=== PATIENT | female | born 1995 | race Caucasian/White ===

== ENCOUNTER → 2020-08-26 09:31 | Outpatient (BNVA) | payer OTHER, SELFPAY | DX: Z34.80 Encounter for supervision of other normal pregnancy, unspecified trimester (principal) | CPT/HCPCS: 99211 ==

== ENCOUNTER 2020-09-01 19:21 | Emergency (ER) | payer OTHER, SELFPAY ==
[2020-09-01 19:28] VITALS: BP 117/76; PULSE 69; RESP 18; TEMP 36.8; O2SAT 99; BMI 29.0
[2020-09-01 20:00] VITALS: BP 113/74; PULSE 67; RESP 16; TEMP 37.3; O2SAT 100
--- NOTE | 2020-09-01 20:19 | US_ITS ---
EXAMINATION: ULTRASOUND CLINICAL INFORMATION: Vaginal spotting with COMPARISON: None TECHNIQUE: Both transabdominal and endovaginal scanning was performed. FINDINGS: An anteverted uterus is present. A small gestational sac is seen in the endometrial cavity. A tiny yolk sac is seen. No pole is present. Gestational sac measures 0.58 cm which corresponds with a gestational age of 5 weeks 1 day The right ovary measures 2.4 x 2.3 x 1.5 cm and appears unremarkable. Left ovary measures 3.0 x 1.0 x 1.5 cm and appears unremarkable. No free fluid is present in the cul-de-sac US/US OB transvaginal IMPRESSION: A gestational sac is seen along with a yolk sac but no pole is identified. Based upon gestational sac size, age would be 5 weeks 1 day. Please correlate with hCG and repeat ultrasound if needed.
--- NOTE | 2020-09-01 20:21 | US_ITS ---
EXAMINATION: ULTRASOUND CLINICAL INFORMATION: Vaginal spotting with COMPARISON: None TECHNIQUE: Both transabdominal and endovaginal scanning was performed. FINDINGS: An anteverted uterus is present. A small gestational sac is seen in the endometrial cavity. A tiny yolk sac is seen. No pole is present. Gestational sac measures 0.58 cm which corresponds with a gestational age of 5 weeks 1 day The right ovary measures 2.4 x 2.3 x 1.5 cm and appears unremarkable. Left ovary measures 3.0 x 1.0 x 1.5 cm and appears unremarkable. No free fluid is present in the cul-de-sac US/US OB <= 14 weeks fetus IMPRESSION: A gestational sac is seen along with a yolk sac but no pole is identified. Based upon gestational sac size, age would be 5 weeks 1 day. Please correlate with hCG and repeat ultrasound if needed.
[2020-09-01 20:45] LABS: MANUAL DIFF FLAG NO
[2020-09-01 20:48] LABS: Glucose Urine UA NEG (NEG); Leukocyte Esterase Urine NEG (NEG); Nitrite Urine NEG (NEG); PH 6.5 (5.0-8.0); UPreg QC Valid YES; Urine Blood TRACE (NEG); Urine Ketones NEG (NEG); Urine Pregnancy POSITIVE (NEGATIVE); Urine Protein NEG (NEG-TRACE)
[2020-09-01 20:49] LABS: Appearance Urine HAZY; Color Urine YELLOW
[2020-09-01 20:50] LABS: Basophils Percent Auto 0.5 % (0-2); Eosinophils Absolute Auto 0.6 X10*3/uL (0.0-0.4); Hematocrit 37.4 % (37-47); Hemoglobin 12.4 g/dl (12.0-16.0); Imm Gran Abs Auto 0.02 X10*3/uL (0.00-0.03); Imm Gran Pct Auto 0.2 % (0.0-0.4); Lymphocytes Absolute Auto 3.8 X10*3/uL (1.2-4.9); Lymphocytes Percent Auto 43.1 % (20-40); Mean Corpuscular HGB Conc 33.2 g/dl (31.0-35.0); Mean Corpuscular Volume 90.3 fL (80-98); Mean Platelet Volume 9.4 fL (9.4-12.3); Monocytes Absolute Auto 0.7 X10*3/uL (0.1-1.2); Monocytes Percent Auto 7.4 % (2-11); Neutrophils Absolute Auto 3.7 X10*3/uL (2.0-8.3); Neutrophils Percent Auto 41.8 % (45-73); Platelet Count 311 X10*3/uL (160-400); Red Blood Count 4.14 X10*6/uL (4.20-5.50); Red Cell Distribution Width 12.1 % (11.0-16.0); White Blood Count 8.8 X10*3/uL (4.8-10.8)
[2020-09-01 20:57] LABS: INTERNATIONAL NORM RATIO 1.2 (0.9-1.1); Prothrombin Time 14.5 SEC (10.8-13.0)
[2020-09-01 20:59] LABS: Partial Thromboplastin Time 36.9 SEC (24.1-38.0)
[2020-09-01 21:08] LABS: Amorphous Sediment Urine 1+ /LPF; Bacteria Urine 2+ /LPF; RBC Urine 0-2 /HPF (0); Squamous Epithelial Cell Urine 2+ /LPF; WBC Urine 0 /HPF (0-4)
[2020-09-01 21:21] LABS: Alanine Aminotransferase 11 U/L (0-31); Albumin Level 4.4 g/dL (3.5-5.0); Alkaline Phosphatase 38 U/L (39-117); Anion Gap 9 (12-20); Aspartate Amino Transferase 14 U/L (5-31); Bilirubin Direct < 0.2 mg/dL (0.0-0.5); Bilirubin Total 0.4 mg/dL (0.0-1.0); Blood Urea Nitrogen 17 mg/dL (9-16); Calcium 8.8 mg/dL (8.4-10.2); Carbon Dioxide 27 mmol/L (22-29); Chloride 103 mmol/L (96-108); Creatinine Clr Calc Pharmacy 122.2; Estimated Glomerular Filt Rate > 60; Glucose Random 85 mg/dL (60-115); HCG Quantitative 1065 mIU/mL; Lipase 28 U/L (8-78); Potassium 4.3 mmol/l (3.3-5.1); Sodium 135 mmol/L (135-145); Total Protein 7.1 g/dL (6.5-8.0)
[2020-09-01 21:48] VITALS: BP 105/71; PULSE 59; RESP 16; TEMP 36.8; O2SAT 100
--- NOTE | 2020-09-01 22:06 | ED.FEMALEGU ---
HPI - Female Genitourinary General Chief complaint: OB Stated complaint: ultrasound Time Seen by Provider: 09/01/20 23:20 Source: patient Mode of arrival: ambulatory Limitations: no limitations History of Present Illness HPI Narrative: Patient presents to the ED for vaginal spotting since yesterday. Patient states mild abdominal cramping that resolved. Patient was referred to the ED by her OBGYN for further evaluation. Patient denies any blood clots or heavy bleeding. Patient states this is 2nd . Related Data Allergies Allergy/AdvReac Type Severity Reaction Status Date / Time No Known Allergies Allergy Unverified 07/11/20 19:29 [No Known Allergies*] Review of Systems Review of Systems: Yes all other systems are reviewed and are negative Constitutional: Constitutional: Reports as per HPI and Reports no additional constitutional complaints Eyes: Eyes: Reports as per HPI and Reports no additional eye complaints ENT: Reports system reviewed and no additional complaints, except as documented and Reports as per HPI Cardiovascular: Cardiovascular: Reports as per HPI and Reports no additional cardiovascular complaints Respiratory: Respiratory: Reports as per HPI and Reports no additional respiratory complaints Gastrointestinal: Gastrointestinal: Reports GI cramping ( Resolved) Genitourinary: Genitourinary: Reports abnormal vaginal bleeding ( vaginal spotting) Musculoskeletal: Musculoskeletal: Reports no additional musculoskeletal complaints Neurologic: Reports system reviewed and no additional complaints, except as documented and Reports as per HPI Psychiatric: Psychiatric: Reports no additional psychiatric complaints and Reports as per HPI PMF Social History Social History Alcohol intake: never Smoking Status: Never smoker Smoked in Last 30 Days: No Use of substances other than those prescribed or required for medical reasons: No Advance Directives: No Advance Directives Information Provided: Yes Physical Exam Vital Signs: Vital Signs: Last Vital Signs Temp 98.6 F 09/01/20 23:03 Pulse 62 09/01/20 23:03 Resp 16 09/01/20 23:03 BP 116/69 09/01/20 23:03 Pulse Ox 100 09/01/20 23:03 Body Mass Index 29.0 Const: General: cooperative, healthy appearing, comfortable, no acute distress, well developed and alert Orientation/consciousness: oriented to person, oriented to place, oriented to time and patient oriented x3 HENMT: Head: Yes normal to inspection and Yes No palpable skull fracture present Eyes: General: appearance normal, both eyes and all related structures Visual Rich: normal visual rich by confrontation Neck: Neck: Yes normal visual inspection and Yes full ROM Chest: Chest palpation & inspection: normal inspection of the chest and normal palpation of entire chest wall Resp: Effort & Inspection: normal respiratory effort and able to speak in complete sentences Auscultation: clear to auscultation bilaterally Cardio: Jugular venous distension: no JVD Heart sounds: S1 normal heart sound present and S2 normal heart sound present GI: Inspection: Yes normal to inspection and No abdominal wall ecchymosis Palpation (GI): Soft to palpation, not firm, nontender, no guarding and not rigid : Other: Cervical os is closed. Positive for residue blood vaginal vault. Negative for any heavy bleeding, blood clots, hemorrhaging. General: No CVA tenderness and Yes no CVA tenderness Back/Spine/Pelvis: Back: no CVA tenderness, No CVA tenderness and No back tenderness Skin: General skin exam: no rashes or lesions noted Neuro: General: oriented to person, oriented to place, oriented to time, patient oriented x3 and CN's II-XI intact bilaterally Cranial nerves: Yes CN's II-XII intact bilaterally Extrem: General: Yes normal to inspection and Yes full ROM Psych: Appearance: grossly normal and well kempt Course Course Course Narrative: Patient had basic labs including urine, Rh type, and ultrasound to rule out topic . Patient present not any pain Reevaluation(s) Reevaluation #1: patient labs are baseline. Urine negative for UTI. Ultrasound shows gestational sac at 5 weeks. Patient is Rh type negative. [facility] see patient is should have her RhoGAM due to her being Rh negative in Time: 21:20 Reevaluation #2: spoke with Dr. Romo of OBGYN who states patient does not need RhoGAM presently in the ED. She states patient could be discharged and will receive RhoGAM injection at 28 weeks. Patient will call tomorrow for follow-up Time: 23:45 MDM - Female Genitourinary MDM Narrative Medical decision making narrative: early versus threatened Lab Data Result diagrams: 09/01/20 20:37 09/01/20 20:37 Labs: Lab Results 09/01/20 09/01/20 09/01/20 Range/Units 20:37 20:37 20:37 WBC 8.8 (4.8-10.8) X10*3/uL RBC 4.14 L (4.20-5.50) X10*6/uL Hgb 12.4 (12.0-16.0) g/dl Hct 37.4 (37-47) % MCV 90.3 (80-98) fL MCH 30.0 (27.0-33.0) pg MCHC 33.2 (31.0-35.0) g/dl RDW 12.1 (11.0-16.0) % Plt Count 311 (160-400) X10*3/uL MPV 9.4 (9.4-12.3) fL Immature Gran % (Auto) 0.2 (0.0-0.4) % Neut % (Auto) 41.8 L (45-73) % Lymph % (Auto) 43.1 H (20-40) % [place] % (Auto) 7.4 (2-11) % Eos % (Auto) 7.0 H (0-4) % Baso % (Auto) 0.5 (0-2) % Lymph # (Auto) 3.8 (1.2-4.9) X10*3/uL [place] # (Auto) 0.7 (0.1-1.2) X10*3/uL Eos # (Auto) 0.6 H (0.0-0.4) X10*3/uL Baso # (Auto) 0.0 (0.0-0.2) X10*3/uL Abs Immat Gran (auto) 0.02 (0.00-0.03) X10*3/uL Absolute Neuts (auto) 3.7 (2.0-8.3) X10*3/uL Absolute Nucleated RBC 0.000 (0.0-0.012) X10*3/uL Nucleated RBC % (auto) 0.0 (0.0-0.2) /100WBC PT 14.5 H (10.8-13.0) SEC INR 1.2 H (0.9-1.1) APTT 36.9 (24.1-38.0) SEC Sodium 135 (135-145) mmol/L Potassium 4.3 (3.3-5.1) mmol/l Chloride 103 (96-108) mmol/L Carbon Dioxide 27 (22-29) mmol/L Anion Gap 9 L (12-20) BUN 17 H (9-16) mg/dL Creatinine 0.79 (0.5-1.4) mg/dL Estim Creat Clear Calc 122.2 Estimated GFR > 60 Random Glucose 85 (60-115) mg/dL Calcium 8.8 (8.4-10.2) mg/dL Total Bilirubin 0.4 (0.0-1.0) mg/dL Direct Bilirubin < 0.2 (0.0-0.5) mg/dL AST 14 (5-31) U/L ALT 11 (0-31) U/L Alkaline Phosphatase 38 L (39-117) U/L Total Protein 7.1 (6.5-8.0) g/dL Albumin 4.4 (3.5-5.0) g/dL Lipase 28 (8-78) U/L Beta HCG, Quant 1065 mIU/mL Urine Color Urine Appearance Urine pH (5.0-8.0) Ur Specific [place] (1.005-1.025) Urine Protein (NEG-TRACE) MG/DL Urine Glucose (UA) (NEG) MG/DL Urine Ketones (NEG) MG/DL Urine Blood (NEG) Urine Nitrite (NEG) Ur Leukocyte Esterase (NEG) Urine RBC (0) /HPF Urine WBC (0-4) /HPF Ur Squamous Epith Cells /LPF Amorphous Sediment /LPF Urine Bacteria /LPF Urine Test (NEGATIVE) Blood Type 09/01/20 09/01/20 Range/Units 20:37 20:42 WBC (4.8-10.8) X10*3/uL RBC (4.20-5.50) X10*6/uL Hgb (12.0-16.0) g/dl Hct (37-47) % MCV (80-98) fL MCH (27.0-33.0) pg MCHC (31.0-35.0) g/dl RDW (11.0-16.0) % Plt Count (160-400) X10*3/uL MPV (9.4-12.3) fL Immature Gran % (Auto) (0.0-0.4) % Neut % (Auto) (45-73) % Lymph % (Auto) (20-40) % [place] % (Auto) (2-11) % Eos % (Auto) (0-4) % Baso % (Auto) (0-2) % Lymph # (Auto) (1.2-4.9) X10*3/uL [place] # (Auto) (0.1-1.2) X10*3/uL Eos # (Auto) (0.0-0.4) X10*3/uL Baso # (Auto) (0.0-0.2) X10*3/uL Abs Immat Gran (auto) (0.00-0.03) X10*3/uL Absolute Neuts (auto) (2.0-8.3) X10*3/uL Absolute Nucleated RBC (0.0-0.012) X10*3/uL Nucleated RBC % (auto) (0.0-0.2) /100WBC PT (10.8-13.0) SEC INR (0.9-1.1) APTT (24.1-38.0) SEC Sodium (135-145) mmol/L Potassium (3.3-5.1) mmol/l Chloride (96-108) mmol/L Carbon Dioxide (22-29) mmol/L Anion Gap (12-20) BUN (9-16) mg/dL Creatinine (0.5-1.4) mg/dL Estim Creat Clear Calc Estimated GFR Random Glucose (60-115) mg/dL Calcium (8.4-10.2) mg/dL Total Bilirubin (0.0-1.0) mg/dL Direct Bilirubin (0.0-0.5) mg/dL AST (5-31) U/L ALT (0-31) U/L Alkaline Phosphatase (39-117) U/L Total Protein (6.5-8.0) g/dL Albumin (3.5-5.0) g/dL Lipase (8-78) U/L Beta HCG, Quant mIU/mL Urine Color YELLOW Urine Appearance HAZY Urine pH 6.5 (5.0-8.0) Ur Specific [place] 1.020 (1.005-1.025) Urine Protein NEG (NEG-TRACE) MG/DL Urine Glucose (UA) NEG (NEG) MG/DL Urine Ketones NEG (NEG) MG/DL Urine Blood TRACE (NEG) Urine Nitrite NEG (NEG) Ur Leukocyte Esterase NEG (NEG) Urine RBC 0-2 (0) /HPF Urine WBC 0 (0-4) /HPF Ur Squamous Epith Cells 2+ /LPF Amorphous Sediment 1+ /LPF Urine Bacteria 2+ /LPF Urine Test POSITIVE H (NEGATIVE) Blood Type O Negative Discharge Plan Discharge Clinical Impression: Early stage of Patient Disposition: Home, Self-Care Instructions: Threatened Miscarriage (ED), (ED) Additional Instructions: return to the ED for any abdominal pain, vaginal bleeding, bleeding clots, weakness, flank pain, fever, chills, nausea, vomiting, or any other concerning symptoms. Referrals: Wendy Romo MD [Physician] - 2 days ( in the ED for resolved abdominal cramping with vaginal spotting. Early versus threatened . Needs repeat ultrasound and repeat beta hCG.) Interventions: ED Discharge Assessment Last Done: 09/02/20 00:01 Discharge Date/Time: 09/02/20 00:02 Print Language: [place]
[2020-09-01 23:03] VITALS: BP 116/69; PULSE 62; RESP 16; TEMP 37; O2SAT 100
--- NOTE | 2020-09-01 23:04 | PC.NURSE ---
THIS PCT SET UP AND ASSIST PA PAKO WITH PATIENT PELVIC EXAM
== END 2020-09-02 00:02 | disposition home or self-care (01) ==
PROVIDERS: Physician Assistant; Emergency Provider Emergency Medicine; PCP Pediatrics
DX: O20.0 Threatened abortion (principal)
CPT/HCPCS: 36415; 76801; 76817; 80053; 80076; 81001; 81025; 82248; 83690; 84702; 85025; 85610; 85730; 86900; 86901; 99284

== ENCOUNTER 2020-09-02 13:24 | Emergency (ER) | payer OTHER, SELFPAY ==
[2020-09-02 15:03] VITALS: BP 133/72; PULSE 77; RESP 16; TEMP 36.9; O2SAT 99; BMI 29.0
--- NOTE | 2020-09-02 15:19 | ED_ITS ---
HPI - General Chief complaint: Vaginal Bleeding Stated complaint: VAGINAL BLEEDING Time Seen by Provider: 09/02/20 15:12 Source: patient Mode of arrival: ambulatory Limitations: no limitations History of Present Illness HPI Narrative: 25-year-old female previously healthy here with vaginal bleedi ng, lower abdominal cramping and low back pain with headache since waking. Changed pad 3 times today. Followed by Dr Majano. Patient tells me that yesterday she had some scant vaginal bleeding noted only with wiping and was seen in the emergency department. She had an ultrasound which showed A gestational sac is seen along with a yolk sac but no pole is identified. Based upon gestational sac size, age would be 5 weeks 1 day. quant 1065. sent home with diagnosis of early versus threatened miscarriage. Patient tells me this morning when she woke up she felt worse and had additional symptoms. She tells me she has changed her pad twice since waking this morning. She called her OB and she was referred to the emergency department for further evaluation. She is . MD Complaint: abdominal pain and vaginal bleeding Onset (ago): hour(s) Pain Consistency: constant Location: abdomen Severity: mild Quality: Cramping Radiation: pelvis Relieving factors: none Exacerbating factors: none Associated symptoms: vaginal bleeding Vaginal discharge: none Vaginal bleeding: light Patient : Yes OB History - Previous Pregnancies: no complications care: followed by OB (Demetrius) Related Data Allergies Allergy/AdvReac Type Severity Reaction Status Date / Time No Known Allergies Allergy Unverified 07/11/20 19:29 [No Known Allergies*] Review of Systems Review of Systems: Yes all other systems are reviewed and are negative Constitutional: Constitutional: Reports no additional constitutional complaints, Denies body ache(s), Denies chills, Denies fever(s), Reports headache(s) and Denies weakness Eyes: Eyes: Reports no additional eye complaints and Denies change in vision ENT: Reports system reviewed and no additional complaints, except as documented, Denies dizziness, Reports headache(s), Denies nasal congestion, Denies nasal discharge and Denies neck pain Cardiovascular: Cardiovascular: Reports no additional cardiovascular complaints, Denies chest pain, Denies leg edema and Denies dyspnea Respiratory: Respiratory: Reports no additional respiratory complaints, Denies cough and Denies dyspnea Gastrointestinal: Gastrointestinal: Reports no additional gastrointestinal complaints, Reports abdominal pain, Denies diarrhea, Denies nausea and Denies vomiting Genitourinary: Genitourinary: Reports no additional female genitourinary complaints, Reports abnormal vaginal bleeding and Denies urinary incontinence Musculoskeletal: Musculoskeletal: Reports no additional musculoskeletal complaints, Reports back pain, Denies arthralgias, Denies joint swelling, Denies neck pain, Denies numbness and Denies tingling Integumentary/Breasts: Skin/Breast: Reports system reviewed and no additional complaints, except as docu and Denies rash Neurologic: Reports system reviewed and no additional complaints, except as documented, Denies Abnormal speech present, Denies dizziness, Reports headache(s), Denies numbness, Denies tingling and Denies weakness PMFSH Past Medical History Attestation statement: The following information was validated with the patient. Source: obtained from family and nursing notes reviewed Social History Social History Alcohol intake: never Smoking Status: Never smoker Advance Directives: No Advance Directives Information Provided: Yes Physical Exam Vital Signs: Vital Signs: Last Vital Signs Temp 98.5 F 09/02/20 15:03 Pulse 77 09/02/20 15:03 Resp 16 09/02/20 15:03 BP 133/72 09/02/20 15:03 Pulse Ox 99 09/02/20 15:03 Body Mass Index 29.0 Const: General: cooperative, healthy appearing, comfortable and no acute distress Orientation/consciousness: patient oriented x3 Limitations: no limitations HENMT: Head: Yes normal to inspection Ears: hearing grossly normal bilaterally General nose exam: Normal external nose present Face and sinus: Yes normal facial exam Mouth: Normal oral and palatal mucosa present Throat: Yes posterior oropharynx normal Eyes: General: appearance normal, both eyes and all related structures Pupils: Equal, round and reactive pupils present Neck: Neck: Yes normal visual inspection Chest: Chest palpation & inspection: normal inspection of the chest Resp: Effort & Inspection: normal respiratory effort Auscultation: clear to auscultation bilaterally Cardio: Rate: regular rate Rhythm: regular rhythm Peripheral pulses: Peripheral pulses 2+ throughout GI: Inspection: Yes normal to inspection Palpation (GI): Soft to palpation and Tenderness to palpation present (GI) ( Mild bilateral lower tenderness on exam.) Auscultation: normal bowel sounds : Other: moderate vaginal bleeding noted from the cervical os, small clots. Back/Spine/Pelvis: Thoracic/Lumbar Spine: thoracic and lumbar spine normal to inspection Skin: General skin exam: no rashes or lesions noted Neuro: General: patient oriented x3, no focal motor deficits and normal sensat ion to monofilament Cranial nerves: Yes Equal, round and reactive pupils present Cognition (Neuro): normal cognition Speech: No Abnormal speech present Gait exam (Neuro): Normal gait present Motor exam (neuro): 5/5 mo tor strength present throughout Extrem: General: Yes normal to inspection Course Course Course Narrative: Patient here with abdominal cramping, low back pain, vaginal bleeding increasing last 12 hrs, recent ED visit last evening for threatened miscarriage vs early . Will repeat labs, beta quant, UA, pelvic exam, d/w wih OB. 1645- Unfortunately the patient's beta quant is decreasing since yesterday. On her vaginal exam she has moderate bleeding from the cervical os. Will check ultrasound. Concern for miscarriage. 1700-Sign out to Shawn SALAS pending above, MDM - OB/Uterine Contractions Medical Records Attestation: I reviewed the patient's medical records. Lab Data Attestation: I reviewed the patient's lab results. Result diagrams: 09/02/20 15:50 09/02/20 15:50 Labs: Lab Results 09/02/20 09/02/20 09/02/20 Range/Units 15:50 15:50 15:56 WBC 11.4 H (4.8-10.8) X10*3/uL RBC 4.51 (4.20-5.50) X10*6/uL Hgb 13.5 (12.0-16.0) g/dl Hct 40.3 (37-47) % MCV 89.4 (80-98) fL MCH 29.9 (27.0-33.0) pg MCHC 33.5 (31.0-35.0) g/dl RDW 12.2 (11.0-16.0) % Plt Count 312 (160-400) X10*3/uL MPV 9.3 L (9.4-12.3) fL Immature Gran % (Auto) 0.4 (0.0-0.4) % Neut % (Auto) 76.5 H (45-73) % Lymph % (Auto) 15.6 L (20-40) % [place] % (Auto) 5.1 (2-11) % Eos % (Auto) 2.1 (0-4) % Baso % (Auto) 0.3 (0-2) % Lymph # (Auto) 1.8 (1.2-4.9) X10*3/uL [place] # (Auto) 0.6 (0.1-1.2) X10*3/uL Eos # (Auto) 0.2 (0.0-0.4) X10*3/uL Baso # (Auto) 0.0 (0.0-0.2) X10*3/uL Abs Immat Gran (auto) 0.04 H (0.00-0.03) X10*3/uL Absolute Neuts (auto) 8.7 H (2.0-8.3) X10*3/uL Absolute Nucleated RBC 0.000 (0.0-0.012) X10*3/uL Nucleated RBC % (auto) 0.0 (0.0-0.2) /100WBC Sodium 137 (135-145) mmol/L Potassium 4.2 (3.3-5.1) mmol/l Chloride 105 (96-108) mmol/L Carbon Dioxide 23 (22-29) mmol/L Anion Gap 13 (12-20) BUN 11 (9-16) mg/dL Creatinine 0.74 (0.5-1.4) mg/dL Estim Creat Clear Calc 130.5 Estimated GFR > 60 Random Glucose 105 (60-115) mg/dL Calcium 9.3 (8.4-10.2) mg/dL Total Bilirubin 0.7 (0.0-1.0) mg/dL Direct Bilirubin 0.2 (0.0-0.5) mg/dL AST 16 (5-31) U/L ALT 12 (0-31) U/L Alkaline Phosphatase 41 (39-117) U/L Total Protein 8.0 (6.5-8.0) g/dL Albumin 4.8 (3.5-5.0) g/dL Beta HCG, Quant 982 mIU/mL Urine Color YELLOW Urine Appearance CLEAR Urine pH 7.5 (5.0-8.0) Ur Specific [place] 1.015 (1.005-1.025) Urine Protein NEG (NEG-TRACE) MG/DL Urine Glucose (UA) NEG (NEG) MG/DL Urine Ketones NEG (NEG) MG/DL Urine Blood 3+ H (NEG) Urine Nitrite NEG (NEG) Ur Leukocyte Esterase NEG (NEG) Urine RBC 15-29 H (0) /HPF Urine WBC 0-2 (0-4) /HPF Ur Squamous Epith Cells 2+ /LPF Urine Bacteria NONE /LPF
[2020-09-02] MEDS: 0.9 % Sodium Chloride 1,000 ML 999 ML IV (15:57)
[2020-09-02] MEDS: Acetaminophen 325 MG TABLET 975 MG PO (15:57)
[2020-09-02 15:59] LABS: MANUAL DIFF FLAG NO
[2020-09-02 16:00] LABS: Basophils Percent Auto 0.3 % (0-2); Eosinophils Absolute Auto 0.2 X10*3/uL (0.0-0.4); Eosinophils Percent Auto 2.1 % (0-4); Hematocrit 40.3 % (37-47); Hemoglobin 13.5 g/dl (12.0-16.0); Imm Gran Abs Auto 0.04 X10*3/uL (0.00-0.03); Imm Gran Pct Auto 0.4 % (0.0-0.4); Lymphocytes Absolute Auto 1.8 X10*3/uL (1.2-4.9); Lymphocytes Percent Auto 15.6 % (20-40); Mean Corpuscular HGB Conc 33.5 g/dl (31.0-35.0); Mean Corpuscular Hemoglobin 29.9 pg (27.0-33.0); Mean Corpuscular Volume 89.4 fL (80-98); Mean Platelet Volume 9.3 fL (9.4-12.3); Monocytes Absolute Auto 0.6 X10*3/uL (0.1-1.2); Monocytes Percent Auto 5.1 % (2-11); Neutrophils Absolute Auto 8.7 X10*3/uL (2.0-8.3); Neutrophils Percent Auto 76.5 % (45-73); Platelet Count 312 X10*3/uL (160-400); Red Blood Count 4.51 X10*6/uL (4.20-5.50); Red Cell Distribution Width 12.2 % (11.0-16.0); White Blood Count 11.4 X10*3/uL (4.8-10.8)
[2020-09-02 16:17] LABS: Appearance Urine CLEAR; Color Urine YELLOW; Glucose Urine UA NEG (NEG); Leukocyte Esterase Urine NEG (NEG); Nitrite Urine NEG (NEG); PH 7.5 (5.0-8.0); Specific Gravity - Urine 1.015 (1.005-1.025); Urine Blood 3+ (NEG); Urine Ketones NEG (NEG); Urine Protein NEG (NEG-TRACE)
[2020-09-02 16:25] LABS: Squamous Epithelial Cell Urine 2+ /LPF; WBC Urine 0-2 /HPF (0-4)
[2020-09-02 16:29] LABS: Alanine Aminotransferase 12 U/L (0-31); Albumin Level 4.8 g/dL (3.5-5.0); Alkaline Phosphatase 41 U/L (39-117); Anion Gap 13 (12-20); Aspartate Amino Transferase 16 U/L (5-31); Bilirubin Direct 0.2 mg/dL (0.0-0.5); Bilirubin Total 0.7 mg/dL (0.0-1.0); Blood Urea Nitrogen 11 mg/dL (9-16); Calcium 9.3 mg/dL (8.4-10.2); Carbon Dioxide 23 mmol/L (22-29); Chloride 105 mmol/L (96-108); Creatinine Clr Calc Pharmacy 130.5; Estimated Glomerular Filt Rate > 60; Glucose Random 105 mg/dL (60-115); Potassium 4.2 mmol/l (3.3-5.1); Sodium 137 mmol/L (135-145)
[2020-09-02 16:31] LABS: HCG Quantitative 982 mIU/mL
--- NOTE | 2020-09-02 16:38 | US_ITS ---
EXAMINATION: ULTRASOUND CLINICAL INFORMATION: Pain and bleeding COMPARISON: 09/01/2020 TECHNIQUE: Transabdominal endovaginal scanning was performed. FINDINGS: The uterus measures 9.3 x 4.3 x 4.4 cm. A gestational sac is seen in the lower uterine segment which appears more flattened than it did yesterday. No contents are seen with certainty. No pole or heartbeat is seen. I suspect that this represents a miscarriage. Please correlate with hCG levels. Based upon the size of the gestational sac, age would be 5 weeks and 4 days which is slightly increased since yesterday. The right ovary measures 2.8 x 1.6 x 2.2 cm and contains a 1.1 x 1.0 x 1.0 cm corpus luteum cyst. The left ovary measures 2.2 x 1.2 x 1.0 cm and appears normal. No free fluid is present. US/US OB <= 14 weeks fetus IMPRESSION: A gestational sac is present which appears more flattened than it did yesterday and is now in the lower uterine segment. No pole or yolk sac is identified.
--- NOTE | 2020-09-02 17:02 | US_ITS ---
EXAMINATION: ULTRASOUND CLINICAL INFORMATION: Pain and bleeding COMPARISON: 09/01/2020 TECHNIQUE: Transabdominal endovaginal scanning was performed. FINDINGS: The uterus measures 9.3 x 4.3 x 4.4 cm. A gestational sac is seen in the lower uterine segment which appears more flattened than it did yesterday. No contents are seen with certainty. No pole or heartbeat is seen. I suspect that this represents a miscarriage. Please correlate with hCG levels. Based upon the size of the gestational sac, age would be 5 weeks and 4 days which is slightly increased since yesterday. The right ovary measures 2.8 x 1.6 x 2.2 cm and contains a 1.1 x 1.0 x 1.0 cm corpus luteum cyst. The left ovary measures 2.2 x 1.2 x 1.0 cm and appears normal. No free fluid is present. US/US OB transvaginal IMPRESSION: A gestational sac is present which appears more flattened than it did yesterday and is now in the lower uterine segment. No pole or yolk sac is identified.
[2020-09-02] MEDS: Rho(D) Immune Globulin 300 MCG SYRINGE IM (19:44)
== END 2020-09-02 20:09 | disposition home or self-care (01) ==
PROVIDERS: Nurse Practitioner Family; Emergency Provider Emergency Medicine; PCP Pediatrics
DX: O26.91 Pregnancy related conditions, unspecified, first trimester (principal); Z3A.01 Less than 8 weeks gestation of pregnancy
CPT/HCPCS: 36415; 76801; 76817; 80048; 80076; 81001; 84702; 85025; 86850; 86886; 86900; 86901; 96360; 99283; 99284; J2790

== ENCOUNTER 2020-10-01 07:51 | Outpatient (REF) | payer OTHER, SELFPAY | END 2020-10-01 07:52 | disposition home or self-care (01) | LOC: HO.LAB 07:51 | PROVIDERS: PCP Pediatrics; Visit Provider Advanced Practice Midwife | DX: Z13.89 Encounter for screening for other disorder (principal) ==

== ENCOUNTER 2020-10-02 10:21 | Outpatient (REF) | payer OTHER, SELFPAY ==
[2020-10-02 11:35] LABS: HCG Quantitative 32 mIU/mL
== END 2020-10-02 10:22 | disposition home or self-care (01) ==
LOC: HO.LAB 10:21
PROVIDERS: PCP Pediatrics; Visit Provider Advanced Practice Midwife
DX: O03.9 Complete or unspecified spontaneous abortion without complication (principal); Z3A.00 Weeks of gestation of pregnancy not specified
CPT/HCPCS: 84702; 99212

== ENCOUNTER 2020-10-09 15:02 | Outpatient (REF) | payer OTHER, SELFPAY ==
[2020-10-09 16:11] LABS: HCG Quantitative 340 mIU/mL
== END 2020-10-09 15:03 | disposition home or self-care (01) ==
LOC: HO.LAB 15:02
PROVIDERS: PCP Pediatrics; Visit Provider Obstetrics & Gynecology
DX: O36.80X0 Pregnancy with inconclusive fetal viability, not applicable or unspecified (principal)
CPT/HCPCS: 84702

== ENCOUNTER 2020-10-11 10:01 | Outpatient (REF) | payer OTHER, SELFPAY ==
[2020-10-11 11:11] LABS: HCG Quantitative 731 mIU/mL
== END 2020-10-11 10:02 | disposition home or self-care (01) ==
LOC: HO.LAB 10:01
PROVIDERS: PCP Pediatrics; Visit Provider Obstetrics & Gynecology
DX: O20.0 Threatened abortion (principal)
CPT/HCPCS: 84702

== ENCOUNTER 2020-10-16 14:30 | Outpatient (REF) | payer OTHER, SELFPAY ==
--- NOTE | 2020-10-16 | US_ITS ---
EXAMINATION: FIRST TRIMESTER OB ULTRASOUND CLINICAL INFORMATION: Positive . Check viability. History of recent spontaneous August 2020 COMPARISON: Previous OB ultrasounds September 01 and 09/02/2020 TECHNIQUE: Transabdominal and transvaginal first trimester OB ultrasound. Transvaginal exam was performed for better visualization of the gestational sac and ovaries are FINDINGS: The uterus is normal in size and shape and measures 9.8 x 4.6 x 6.8 cm in dimension. There is an intrauterine gestational sac and yolk sac. No pole is seen. Mean sac diameter measures 0.95 cm suggesting gestational age of 5 weeks 4 days. There is a 1.3 x 0.3 x 1.1 cm hypoechoic area adjacent to the gestational sac questionable for small subchorionic hemorrhage. Cervix is normal. The right maternal ovary measures 3.9 x 2 x 2.1 cm and contains a 1.4 x 1.6 x 1.8 cm slightly complex cyst with internal echoes. The left ovary is normal-appearing and measures 3 x 1.4 x 1 cm. There is no fluid in the pelvis. US/US OB transvaginal IMPRESSION: Intrauterine gestational sac and yolk sac. No pole seen. [place]-rump length suggests gestational age of 5 weeks 4 days.
--- NOTE | 2020-10-16 14:34 | US_ITS ---
EXAMINATION: FIRST TRIMESTER OB ULTRASOUND CLINICAL INFORMATION: Positive . Check viability. History of recent spontaneous August 2020 COMPARISON: Previous OB ultrasounds September 01 and 09/02/2020 TECHNIQUE: Transabdominal and transvaginal first trimester OB ultrasound. Transvaginal exam was performed for better visualization of the gestational sac and ovaries are FINDINGS: The uterus is normal in size and shape and measures 9.8 x 4.6 x 6.8 cm in dimension. There is an intrauterine gestational sac and yolk sac. No pole is seen. Mean sac diameter measures 0.95 cm suggesting gestational age of 5 weeks 4 days. There is a 1.3 x 0.3 x 1.1 cm hypoechoic area adjacent to the gestational sac questionable for small subchorionic hemorrhage. Cervix is normal. The right maternal ovary measures 3.9 x 2 x 2.1 cm and contains a 1.4 x 1.6 x 1.8 cm slightly complex cyst with internal echoes. The left ovary is normal-appearing and measures 3 x 1.4 x 1 cm. There is no fluid in the pelvis. US/US OB <= 14 weeks fetus IMPRESSION: Intrauterine gestational sac and yolk sac. No pole seen. [place]-rump length suggests gestational age of 5 weeks 4 days.
== END 2020-10-16 14:31 | disposition home or self-care (01) ==
LOC: HO.HMGCX 14:30
PROVIDERS: PCP Pediatrics; Visit Provider Obstetrics & Gynecology
DX: O36.80X0 Pregnancy with inconclusive fetal viability, not applicable or unspecified (principal); Z3A.01 Less than 8 weeks gestation of pregnancy; Z87.59 Personal history of other complications of pregnancy, childbirth and the puerperium
CPT/HCPCS: 76801; 76817

== ENCOUNTER 2020-10-30 09:56 | Outpatient (REF) | payer OTHER, SELFPAY ==
--- NOTE | 2020-10-30 09:58 | US_ITS ---
EXAMINATION: FIRST TRIMESTER OB ULTRASOUND CLINICAL INFORMATION: Check viability COMPARISON: Previous exams September 2020 TECHNIQUE: Transabdominal first trimester OB ultrasound FINDINGS: The uterus appears anteverted and normal in size and shape. There is an intrauterine gestational sac. [place]-rump length measures 1.1 cm suggesting gestational age of 7 weeks 2 days with estimated date of delivery of 06/16/2021. heart rate is 152 bpm. There is a yolk sac. The right maternal ovary measures 3.5 x 1.7 x 2.5 cm and contains a 1.5 cm cyst. The left lobe maternal ovary is not seen. There is no fluid in the pelvis. US/US OB <= 14 weeks fetus IMPRESSION: Single viable intrauterine . From today's measurements, gestational age is estimated at 7 weeks 2 days with estimated date of delivery of 06/16/2021.
== END 2020-10-30 09:57 | disposition home or self-care (01) ==
LOC: HO.HMGCX 09:56
PROVIDERS: Visit Provider Obstetrics & Gynecology
DX: O36.80X0 Pregnancy with inconclusive fetal viability, not applicable or unspecified (principal); Z87.59 Personal history of other complications of pregnancy, childbirth and the puerperium
CPT/HCPCS: 76801

== ENCOUNTER → 2020-11-11 13:55 | Outpatient (BNVA) | payer OTHER, SELFPAY | PROVIDERS: Visit Provider Obstetrics & Gynecology | CPT/HCPCS: 99212 ==

== ENCOUNTER 2020-11-29 09:12 | Outpatient (REF) | payer OTHER, SELFPAY ==
--- NOTE | ~2020-11-29 | US_ITS ---
EXAMINATION: OBSTETRICAL ULTRASOUND, FIRST TRIMESTER HISTORY: 25-year-old at 11.4 weeks of gestation NT screening Hypothyroidism COMPARISON: 10/30/2020 TECHNIQUE: Real time transabdominal imaging with color and M-mode Doppler. FINDINGS: A single, live IUP CRL of 58.7 mm c/w 12.3wks is noted. Heart Rate: 152 beats per minute. Normal yolk sac seen. NT was 0.99.mm. NB Present The embryo appears sonographically wnl for this GA. Both maternal ovaries are seen and appear normal. GESTATIONAL AGE: 1. Established GA: 11.4 wks 2. GA from [facility]: 12.3 wks ESTIMATED DATE OF DELIVERY: 1. Established SHO: 06/16/2021 2. SHO from [facility]: 06/10/2021 US/US OB 1T nuc measure IMPRESSION: 1. Single live IUP 2. Size equals dates 3. NT of 0.99 MFM Consultation: I reviewed the ultrasound findings along with significance of NT measurement. The NT of less than 3mm is generally reassuring. However, the sensitivity for T21 detection is only 60%. I reviewed the availability of serum aneuploidy screening which includes cell-free DNA and placental protein based tests. I discussed the sensitivity, false-positive rate, and other limitations associated with each test. I also reviewed the availability of invasive diagnostic tests that are associated small but definite risk of miscarriage. We also reviewed the differences between screening tests and diagnostic tests. After our discussion, she opted for the First trimester screening that is based on cell-free DNA or non-invasive testing (NIPT). Her hypothyroidism is the under good control of the voxel 137 mcg q.d. The result will be faxed to your office in approximately 7 days. A follow up at 18 weeks for survey has been scheduled. Thank you very much for this referral. Majority of this visit was spent reviewing her care and counselling her in face to face time: Time spent 20 min.
[2020-11-29 09:59] LABS: MANUAL DIFF FLAG NO
[2020-11-29 10:12] LABS: Basophils Percent Auto 0.3 % (0-2); Eosinophils Absolute Auto 0.2 X10*3/uL (0.0-0.4); Eosinophils Percent Auto 3.3 % (0-4); Hematocrit 37.9 % (37-47); Imm Gran Abs Auto 0.03 X10*3/uL (0.00-0.03); Imm Gran Pct Auto 0.4 % (0.0-0.4); Lymphocytes Absolute Auto 1.9 X10*3/uL (1.2-4.9); Lymphocytes Percent Auto 27.3 % (20-40); Mean Corpuscular HGB Conc 34.3 g/dl (31.0-35.0); Mean Corpuscular Hemoglobin 29.5 pg (27.0-33.0); Mean Corpuscular Volume 86.1 fL (80-98); Mean Platelet Volume 9.6 fL (9.4-12.3); Monocytes Absolute Auto 0.4 X10*3/uL (0.1-1.2); Monocytes Percent Auto 5.6 % (2-11); Neutrophils Absolute Auto 4.4 X10*3/uL (2.0-8.3); Neutrophils Percent Auto 63.1 % (45-73); Platelet Count 291 X10*3/uL (160-400); Red Cell Distribution Width 11.7 % (11.0-16.0)
[2020-11-29 10:45] LABS: Amphetamine Screen Urine Not Detected (Not Detect); Barbiturates, Urine Not Detected (Not Detect); Benzodiazepines Screen Urine Not Detected (Not Detect); Cannabinoid Screen Urine Not Detected (Not Detect); Cocaine Screen Urine Not Detected (Not Detect); Opiate Screen Urine Not Detected (Not Detect); Phencyclidine Screen Urine Not Detected (Not Detect)
[2020-11-29 11:01] LABS: HBsAGNum1 0.16 S/CO (0.00-0.99); HIV AB/AG Nonreactive (Nonreactive); HIV Num 1 0.11 S/CO (0.00-0.99); Hepatitis B Surface Antigen Negative (Negative)
[2020-11-29 11:02] LABS: Syphilis Screen Nonreactive (Nonreactive); ~HepC Num1 0.14 S/CO (0.00-0.79); ~Hepatitis C Antibody Nonreactive (Nonreactive)
[2020-11-30 18:17] LABS: Rubella IgG Antibody 2.75 Index
== END 2020-11-29 09:13 | disposition home or self-care (01) ==
LOC: HO.US 09:12
PROVIDERS: PCP Pediatrics; Visit Provider Advanced Practice Midwife
DX: Z36.82 Encounter for antenatal screening for nuchal translucency (principal); O99.281 Endocrine, nutritional and metabolic diseases complicating pregnancy, first trimester; E03.9 Hypothyroidism, unspecified; Z3A.11 11 weeks gestation of pregnancy; Z79.899 Other long term (current) drug therapy
CPT/HCPCS: 76813; 80307; 81003; 85025; 86762; 86780; 86787; 86803; 86850; 86870; 86885; 86900; 86901; 87086; 87340; 87389; 99212

== ENCOUNTER 2020-11-29 11:31 | Outpatient (REF) | payer OTHER, SELFPAY ==
[2020-11-30 11:42] LABS: C. trachomatis RNA TMA NOT DETECTED (NOT DETECTED); N. gonorrhoeae RNA TMA NOT DETECTED (NOT DETECTED)
== END 2020-11-29 11:32 | disposition home or self-care (01) ==
LOC: HO.LAB 11:31
PROVIDERS: Visit Provider Advanced Practice Midwife
DX: Z34.90 Encounter for supervision of normal pregnancy, unspecified, unspecified trimester (principal)
CPT/HCPCS: 36415; 87491; 87591

== ENCOUNTER 2020-12-04 07:15 | Outpatient (REF) | payer OTHER, SELFPAY | END 2020-12-04 07:16 | disposition home or self-care (01) | LOC: HO.LAB 07:15 | PROVIDERS: PCP Pediatrics; Visit Provider Obstetrics & Gynecology Maternal & Fetal Medicine | DX: Z13.89 Encounter for screening for other disorder (principal) ==

== ENCOUNTER → 2020-12-23 09:49 | Outpatient (BNVA) | payer OTHER, SELFPAY | PROVIDERS: PCP Pediatrics; Visit Provider Advanced Practice Midwife | DX: O26.899 Other specified pregnancy related conditions, unspecified trimester (principal); O99.619 Diseases of the digestive system complicating pregnancy, unspecified trimester; N89.8 Other specified noninflammatory disorders of vagina; K59.00 Constipation, unspecified | CPT/HCPCS: 81003; 99212 ==

== ENCOUNTER → 2020-12-27 10:22 | Outpatient (BNVA) | payer OTHER, SELFPAY | PROVIDERS: PCP Pediatrics; Visit Provider Advanced Practice Midwife | DX: Z34.91 Encounter for supervision of normal pregnancy, unspecified, first trimester (principal) | CPT/HCPCS: 81003; 99212 ==

== ENCOUNTER 2021-01-24 12:28 | Outpatient (REF) | payer OTHER, SELFPAY ==
--- NOTE | ~2021-01-24 | US_ITS ---
EXAMINATION: US OBSTETRICAL CLINICAL INFORMATION: 26-year-old at 19.4 weeks of GA Screening for anomaly COMPARISON: 11/29/2020 TECHNIQUE: Real-time transabdominal ultrasound was performed using C1-5 megahertz transducer. FINDINGS: A single, active, fetus is seen in vertex presentation. The placenta is anterior without previa, and the amniotic fluid volume is wnl. MEASUREMENTS: 1. Biparietal Diameter: 4.7 cm; 20.2 wks 2. Occipital Frontal Diameter: 6.2 cm 3. Head Circumference: 17.7 cm; 20.2 wks 4. Abdominal Circumference: 14.9 cm; 20.2 wks 5. Femur Length: 3.2 cm; 20.0 wks 6. Humerus Length: 3.1 cm; 20.3 wks 7. Tibia Length: 3.0 cm; 21.0 wks 8. Ulna Length: 3. cm; 22.1 wks 9. Lateral ventricle: 0.6 cm 10. Cerebellum: 2.1 cm; 21.3 wks 11. Cisterna Magna: 0.75 cm 12. Nuchal Fold: 2.9 mm 13. Heart Rate: 143 beats per minute Rt ovary: normal Lt ovary: normal Cervical length 3.5 cm on T/A. GESTATIONAL AGE: 1. Established GA: 19.4 wks 2. GA [facility]: 20.2 wks ESTIMATED DATE OF DELIVERY: 1. Established SHO: 06/16/2021 2. SHO [facility]: 06[facility]11/2021 ANATOMY: The visualized anatomy includes but not limited to: 1. Cranium: Normal 2. Intracranial anatomy: cavum septum pellucidi, lateral ventricles, choroid plexus, cerebellum, posterior fossa, third and fourth ventricles. 3. face: orbits, lip/palate, profile, nasal bone 4. Heart: four-chamber view of the heart, ventricular septum, foramen ovale, pulmonary vein, left and right outflow tracts, three-vessel view, 3 vessel trachea view, aortic and ductal arches, situs.. 5. Diaphragm: Normal 6. Abdominal wall: Normal 7. Cord Insertion: Normal 8. Spine: Cervical, thoracic, lumbar, sacral. 9. Stomach: Normal size and shape 10. Right Kidney: Normal 11. Left Kidney: Normal 12. 3 vessel cord: Normal 13. Upper extremity: Open hands, fifth digit. 14. Lower extremity: Tibia, fibula, bilateral feet. 15. Bladder: Normal 16. Genitalia: Male, patient aware US/US OB /maternal det add IMPRESSION: 1. Single, living, intrauterine with appropriate biometry. 2. Normal survey DISCUSSION: I reviewed today's ultrasound findings. We discussed the limitations of ultrasound in diagnosing aneuploidy and other congenital abnormalities. I reviewed the differences between screening test and diagnostic test. Amniocentesis was discussed and declined. She was informed that the baseline incidence of congenital abnormalities is approximately 3-5%. Not all these conditions are diagnosable in utero. RECOMMENDATIONS: Follow-up when necessary. Thank you for allowing me to participate in her care. Total time 20 minutes. The time spent was devoted to counseling the patient about the disease and diagnosis, coordinating care including reviewing her records, pertinent lab data and studies, as well as discussing diagnostic evaluation and workup, plan therapeutic interventions and future disposition of care. This includes any additional research needed to obtain further information in formulating the plan of care of this patient. This note was generated with a voice recognition program. Please excuse any errors which may have been overlooked during my review of this note. Sometimes these errors may affect the content or meaning of a given sentence.
== END 2021-01-24 12:29 | disposition home or self-care (01) ==
LOC: HO.US 12:28
PROVIDERS: Visit Provider Advanced Practice Midwife
DX: O35.9XX0 Maternal care for (suspected) fetal abnormality and damage, unspecified, not applicable or unspecified (principal); Z3A.19 19 weeks gestation of pregnancy
CPT/HCPCS: 76811; 76812; 81003; 99212

== ENCOUNTER 2021-03-28 08:45 | Outpatient (REF) | payer OTHER, SELFPAY ==
[2021-03-28 10:19] LABS: MANUAL DIFF FLAG NO
[2021-03-28 10:24] LABS: Basophils Percent Auto 0.4 % (0-2); Eosinophils Absolute Auto 0.4 X10*3/uL (0.0-0.4); Eosinophils Percent Auto 4.2 % (0-4); Hematocrit 35.1 % (37-47); Hemoglobin 11.9 g/dl (12.0-16.0); Imm Gran Abs Auto 0.06 X10*3/uL (0.00-0.03); Imm Gran Pct Auto 0.7 % (0.0-0.4); Lymphocytes Absolute Auto 1.8 X10*3/uL (1.2-4.9); Lymphocytes Percent Auto 21.5 % (20-40); Mean Corpuscular HGB Conc 33.9 g/dl (31.0-35.0); Mean Corpuscular Hemoglobin 30.5 pg (27.0-33.0); Mean Platelet Volume 9.3 fL (9.4-12.3); Monocytes Absolute Auto 0.4 X10*3/uL (0.1-1.2); Monocytes Percent Auto 5.2 % (2-11); Neutrophils Absolute Auto 5.7 X10*3/uL (2.0-8.3); Platelet Count 210 X10*3/uL (160-400); White Blood Count 8.3 X10*3/uL (4.8-10.8)
[2021-03-28 10:38] LABS: Glucose 1 Hour PP 50gm Dose 142 mg/dL (60-140)
== END 2021-03-28 08:46 | disposition home or self-care (01) ==
LOC: HO.LAB 08:45
PROVIDERS: PCP Pediatrics; Visit Provider Advanced Practice Midwife
DX: Z34.83 Encounter for supervision of other normal pregnancy, third trimester (principal)
CPT/HCPCS: 36415; 85025

== ENCOUNTER 2021-05-07 07:51 | Outpatient (REF) | payer OTHER, SELFPAY ==
[2021-05-07 09:14] LABS: Glucose Fasting 91 mg/dL (60-99)
[2021-05-07 10:36] LABS: Glucose 1 Hour 185 mg/dL
[2021-05-07 11:22] LABS: Glucose 2 Hour 153 mg/dL
[2021-05-07 12:16] LABS: Glucose 3 Hour 126 mg/dL
== END 2021-05-07 07:52 | disposition home or self-care (01) ==
LOC: HO.LAB 07:51
PROVIDERS: PCP Pediatrics; Visit Provider Advanced Practice Midwife
DX: Z34.90 Encounter for supervision of normal pregnancy, unspecified, unspecified trimester (principal)
CPT/HCPCS: 36415; 82951